=== PATIENT | female | born 1945 | race Caucasian/White ===

== ENCOUNTER → 2017-09-09 | Outpatient (CLI) | payer MEDICARE, OTHER, MEDICAID ==
[~2017-09-09] MED LIST: CIPROFLOXACIN500 MG PO; COUMADIN5 MG PO; COUMADIN7.5 MG PO; GLIPIZIDE5 MG PO; HYDROCODONE1 TABLET PO; KEFLEX 500MG.500 MG PO; LISINOPRIL/HCTZ1 TA3 PO; LISINOPRIL10 MG PO; METFORMIN1000 MG PO; TAMOXIFEN PO; TRAMADOL 50MG T50 MG PO; VICODIN 5/500 T1 TAB PO
[2017-09-09 09:55] LABS: BUN 23 mg/dL (7-18); GFR (ESTIMATED) 71 ML/MIN (59-)
[2017-09-09 10:01] LABS: HEMOGLOBIN 13.1 g/dL (12.2-16.2); LYMPH # 1.5 K/mm3 (0.7-4.5); LYMPH % 26.3 % (10-50.0)
--- NOTE | 2017-09-10 06:40 | RADIOLOGY REPORT PS360 ---
CT ABD PELVIS W/ CONTRAST CLINICAL INDICATION: Follow-up splenic lesion in this patient with history of breast cancer BREAST CA,SPLENIC LESION ORDERING PHYSICIAN: MUKUND MACHADO APRN PATIENT AGE: 72 years COMPARISON: 02/17/2017, 08/21/2016 TECHNIQUE: Axial imaging and delayed enhanced images obtained with sagittal and coronal reformats. PROCEDURE: Oral Contrast: Redicat IV Contrast: 75 mL's [id number]. FINDINGS: Lower thorax: Status post right mastectomy ABDOMEN: Probable fatty infiltration along the falciform ligament region of the left hepatic lobe with slight decreased attenuation not significant changed. Liver has an otherwise unremarkable appearance. There is a persistent stable rounded area of decreased attenuation in the posterior aspect of the spleen measuring 12 mm unchanged from the previous exam. No new splenic lesions are evident. The adrenal glands are unremarkable. There is mild pancreatic atrophy. An 18 mm isodensity is present in the right kidney posteriorly consistent with a renal cyst. No hydronephrosis. No retroperitoneal adenopathy. There is a moderate amount retained colonic feces. Umbilical hernia is present containing fat PELVIS: There is an exophytic isodensity projecting off the posterior aspect of the uterus measuring 3 cm and may be due to uterine fibroid. No pelvic fluid collection or focal inflammatory change. No evidence of appendicitis or diverticulitis. There is diverticulosis of the sigmoid colon. No bony destructive process IMPRESSION: 1. Stable CT appearance of the abdomen and pelvis. 2. Specifically, stable appearance of the splenic lesion. 3. No convincing evidence of metastatic disease. 4. small umbilical hernia. 5. Suspect uterine fibroid
--- NOTE | 2017-09-10 07:21 | RADIOLOGY REPORT PS360 ---
HIP RT 2-3V W/PELVIS IF PERFOR HISTORY: RT HIP PAIN ORDERING PHYSICIAN: MKUUND MACHADO APRN PATIENT AGE: 72 years COMPARISON: None FINDINGS: No fracture or dislocation is evident. No significant degenerative change. No lytic or blastic change. Unremarkable soft tissues. Contrast is present in the urinary bladder and ureters. There is also enteric contrast noted. These are from the recent CT scan. There are mild hypertrophic changes of the greater trochanter on both sides nonspecific IMPRESSION: Negative right hip
--- NOTE | 2017-09-10 07:21 | RADIOLOGY REPORT PS360 ---
HIP RT 2-3V W/PELVIS IF PERFOR HISTORY: RT HIP PAIN ORDERING PHYSICIAN: MUKUND MACHADO APRN PATIENT AGE: 72 years COMPARISON: None FINDINGS: No fracture or dislocation is evident. No significant degenerative change. No lytic or blastic change. Unremarkable soft tissues. Contrast is present in the urinary bladder and ureters. There is also enteric contrast noted. These are from the recent CT scan. There are mild hypertrophic changes of the greater trochanter on both sides nonspecific IMPRESSION: Negative right hip
== END ==
LOC: RAD 09-03 09:00
PROVIDERS: Nurse Practitioner
DX: C50.911 Malignant neoplasm of unspecified site of right female breast (principal); Z03.89 Encounter for observation for other suspected diseases and conditions ruled out
CPT/HCPCS: Q9967